=== PATIENT | female | born 1985 | race Hispanic/Latino ===

== ENCOUNTER 2022-08-09 07:30 | Inpatient (IN) | payer MEDICAID, OTHER, SELFPAY ==
[~2022-08-09 07:30] MED LIST: Famotidine/PF 20 mg/2ml Vial SLOW IVP PRN; Ondansetron PF 4 MG/2 ML Vial IVP PRN; Promethazine HCl 25 MG/ML VIAL IM PRN; Terbutaline Sulfate 1 MG/ML VIAL SC SCH; hydrALAZINE 20 MG/ML VIAL SLOW IVP PRN
[2022-08-09] MEDS ORDERED: hydrALAZINE 20 MG/ML VIAL ONE (14:48)
[2022-08-20] MEDS ORDERED: Promethazine HCl 25 MG/ML VIAL IM PRN ×2 (08:22→18:14)
[2022-08-20] MEDS ORDERED: Ondansetron PF 4 MG/2 ML Vial IVP PRN ×2 (08:22→18:14)
[2022-08-20] MEDS ORDERED: hydrALAZINE 20 MG/ML VIAL SLOW IVP PRN ×2 (08:22→18:14)
[2022-08-20] MEDS ORDERED: Acetaminophen 500 MG TAB PO PRN (08:22)
[2022-08-20] MEDS ORDERED: Lidocaine 1% (PF) 30 ML VIAL SC PRN (08:22)
[2022-08-20] MEDS: Lactated Ringer's 1,000 ML IV SCH (08:29)
[2022-08-20] MEDS ORDERED: NS w/ Oxytocin 30 units 500 ML IV SCH ×3 (08:30→18:14)
[2022-08-20] MEDS ORDERED: Misoprostol 200 MCG TAB PR PRN (08:45)
[2022-08-20] MEDS ORDERED: Carboprost 250 MCG/ML AMP IM PRN (08:45)
[2022-08-20] MEDS ORDERED: Methylergonovine 0.2 MG/ML VIAL IM PRN ×2 (08:45→18:14)
[2022-08-20] MEDS ORDERED: Ibuprofen 800 MG TAB PO PRN (08:45)
[2022-08-20 08:54] LABS: Hemoglobin 10.8 g/dL (12.0-15.5); Mean Corpuscular HGB CONC 32.8 g/dL (32.0-36.0); Mean Corpuscular Hemoglobin 27.3 pg (27.0-33.0); Mean Corpuscular Volume 83.3 fl (81.6-98.3); Platelet Count 236 10x3/uL (150-450); Red Blood Cell (RBC) Count 3.95 10x6/uL (3.90-5.03); White Blood Cell (WBC) Count 8.3 10x3/uL (3.5-10.5)
[2022-08-20 09:05] VITALS: BMI 37.8
[2022-08-20 09:27] LABS: Syphilis Antibody Nonreactive (Nonreactive); Syphilis Antibody Index 0.12 S/CO (<1.00 Non-Reactive)
[2022-08-20 09:29] LABS: HBSAg Index 0.16 S/CO (0-0.99); Hep B Surf Ag Non-Reactive S/CO (NonReactive)
[2022-08-20 10:33] LABS: SARS-CoV-2 NAA Rapid Test Not Detected (NotDetected)
[2022-08-20] MEDS ORDERED: Lanolin Ointment 7 GM TUBE TOP PRN (18:14)
[2022-08-20] MEDS ORDERED: Benzocaine-Menthol 82.5 ML CAN TOP PRN (18:14)
[2022-08-20] MEDS ORDERED: Milk Of Magnesia 30 ML UDCUP PO PRN (18:14)
[2022-08-20] MEDS ORDERED: Misoprostol 200 MCG TAB VAG PRN (18:14)
[2022-08-20] MEDS ORDERED: Bisacodyl 10 MG SUPP PR PRN (18:14)
[2022-08-20] MEDS ORDERED: Boostrix 0.5 ML (Tdap) VIAL (>/=7 yrs of age) IM ONE (18:14)
[2022-08-20] MEDS: Ibuprofen 800 MG TAB PO SCH (22:04)
[2022-08-20] MEDS: Docusate 100 MG CAP PO SCH (22:04)
[2022-08-21] MEDS ORDERED: Simethicone Chewable 80 MG TAB PO PRN (00:43)
[2022-08-21] MEDS: Acetaminophen 500 MG TAB PO PRN ×2 (01:01→08:20)
[2022-08-21] MEDS: Ibuprofen 800 MG TAB PO SCH ×2 (04:53→13:52)
[2022-08-21] MEDS: Ferrous Sulfate 325 MG TAB PO SCH ×3 (07:08→07:09)
[2022-08-21] MEDS: Lactated Ringer's 1,000 ML IV SCH (07:11)
[2022-08-21 07:39] VITALS: BP 90/50
[2022-08-21] MEDS: Docusate 100 MG CAP PO SCH (08:20)
[2022-08-21] MEDS ORDERED: Prenatal Vitamin 1 TAB PO SCH (09:00)
[2022-08-21 11:24] VITALS: TEMP 99.4
== END 2022-08-21 18:10 | disposition home or self-care (01) | DRG 806 ==
LOC: SCHOBSVTOIN 08:08 → CSHLD 08-20 07:19 → CSHPP 08-20 19:40
PROVIDERS: ADMIT Family Medicine; ATTEND Family Medicine
PROC: 10E0XZZ Delivery of Products of Conception, External Approach (ICD-10-PCS; principal; 2022-08-20)
PROC: 3E033VJ Introduction of Other Hormone into Peripheral Vein, Percutaneous Approach (ICD-10-PCS; 2022-08-20)
DX: O24.420 Gestational diabetes mellitus in childbirth, diet controlled (principal); O72.1 Other immediate postpartum hemorrhage; Z37.0 Single live birth; D50.9 Iron deficiency anemia, unspecified; O99.02 Anemia complicating childbirth; Z14.1 Cystic fibrosis carrier; O99.892 Other specified diseases and conditions complicating childbirth; E66.9 Obesity, unspecified; O99.214 Obesity complicating childbirth; O36.63X0 Maternal care for excessive fetal growth, third trimester, not applicable or unspecified; O42.02 Full-term premature rupture of membranes, onset of labor within 24 hours of rupture; O69.81X0 Labor and delivery complicated by cord around neck, without compression, not applicable or unspecified; O77.0 Labor and delivery complicated by meconium in amniotic fluid; Z3A.39 39 weeks gestation of pregnancy; Z20.822 Contact with and (suspected) exposure to COVID-19
CPT/HCPCS: 36415; 36416; 85027; 86780; 86850; 86900; 86901; 87340; J2210; J2590; J7120; U0002

== ENCOUNTER 2022-08-19 18:00 | Inpatient (IN) | payer MEDICAID, OTHER, SELFPAY ==
[2022-08-19] MEDS ORDERED: hydrALAZINE 20 MG/ML VIAL SLOW IVP PRN (18:45)
[2022-08-19] MEDS ORDERED: Lidocaine 1% (PF) 30 ML VIAL SC PRN (18:45)
[2022-08-19] MEDS ORDERED: Promethazine HCl 25 MG/ML VIAL IM PRN (18:45)
[2022-08-19] MEDS ORDERED: NS w/ Oxytocin 30 units 500 ML IV SCH ×2 (18:45→19:00)
[2022-08-19] MEDS ORDERED: Ondansetron PF 4 MG/2 ML Vial IVP PRN (18:45)
[2022-08-19] MEDS ORDERED: Misoprostol 100 MCG TAB VAG SCH (19:00)
== END 2022-08-19 19:50 | disposition home or self-care (01) | DRG 833 ==
LOC: CSHLD 18:11
PROVIDERS: ADMIT Family Medicine; ATTEND Family Medicine
DX: O24.410 Gestational diabetes mellitus in pregnancy, diet controlled (principal); Z3A.39 39 weeks gestation of pregnancy; O32.8XX0 Maternal care for other malpresentation of fetus, not applicable or unspecified